=== PATIENT | female | born 1970 | race Two or more races ===

== ENCOUNTER 2023-04-10 06:41 | Day surgery (SDC) | payer OTHER ==
[~2023-04-10] VITALS: Ht 160 cm; Wt 64.4 kg
[~2023-04-10 06:41] MED LIST: ATORVASTATIN CA10 MG PO; FOLIC ACID20 MG PO; HORIZANT300 MG PO; METFORMIN HCL1000 M2 PO; MOBIC7.5 MG PO; MULTIPLE VITAM1 EAC2 PO; PROBIOTIC250 MG PO; ZESTRIL2.5 MG PO
[2023-04-10] MEDS ORDERED: TRAM1TAB98 PO (12:23)
[2023-04-10] MEDS ORDERED: NEURONTIN300 MG PO (12:23)
[2023-04-10] MEDS ORDERED: COLACE100 MG PO (12:23)
== END 2023-04-10 16:10 | disposition home or self-care (01) ==
LOC: CIR.AMB 06:41
PROVIDERS: ATTEND Surgery
DX: C21.8 Malignant neoplasm of overlapping sites of rectum, anus and anal canal (principal); K62.82 Dysplasia of anus; D12.8 Benign neoplasm of rectum; K62.89 Other specified diseases of anus and rectum; Z20.822 Contact with and (suspected) exposure to COVID-19